=== PATIENT | male | born 2000 | race African-American/Black ===

== ENCOUNTER 2022-07-14 18:08 | Emergency (ER) | payer BC ==
[2022-07-14] MEDS ORDERED: ACETAMINOPHEN TAB 500 MG TAB PO STA (18:26)
--- NOTE | 2022-07-14 18:33 | ED ---
General Adult HPI - General Chief complaint: Extremity Injury, Upper Stated complaint: Arm injury Time Seen by Provider: 07/14/22 18:22 Source: patient, RN notes reviewed Mode of arrival: ambulatory Limitations: no limitations - History of Present Illness Initial comments: 21-year-old male presents to the emergency department with chief complaint of left hand injury. He states that he was playing flag football just prior to arrival when he went in for a tackle and he believes he bent his third through fifth digits back but is unclear of the exact mechanism of the injury. Patient has deformity of digits 3 through 5. He reports decrease in range of motion to his third through fifth digits of the left hand. Denies numbness, tingling. - Related Data Allergies Allergy/AdvReac Type Severity Reaction Status Date / Time No Known Allergies Allergy Verified 07/14/22 18:15 Review of Systems ROS Statement: Those systems with pertinent positive or pertinent negative responses have been documented in the HPI. ROS Other: All systems not noted in ROS Statement are negative. Past Medical History Additional Past Medical History / Comment(s): heart murmur History of Any Multi-Drug Resistant Organisms: None Reported Past Surgical History: No Surgical Hx Reported Past Psychological History: No Psychological Hx Reported Smoking Status: Never smoker Past Alcohol Use History: None Reported Past Drug Use History: None Reported General Exam Limitations: no limitations General appearance: alert, in no apparent distress Head exam: Present: atraumatic, normocephalic, normal inspection Eye exam: Present: normal appearance, PERRL, EOMI. Absent: scleral icterus, conjunctival injection, periorbital swelling ENT exam: Present: normal exam, mucous membranes moist Neck exam: Present: normal inspection. Absent: tenderness, meningismus, lymphadenopathy Respiratory exam: Present: normal lung sounds bilaterally. Absent: respiratory distress, wheezes, rales, rhonchi, stridor Cardiovascular Exam: Present: regular rate, normal rhythm, normal heart sounds. Absent: systolic murmur, diastolic murmur, rubs, gallop, clicks Extremities exam: Present: normal capillary refill, other (Patient has deformity to left hand third through fifth digits, decreased range of motion, radial pulses 2+ bilaterally, normal capillary refill) Back exam: Present: normal inspection Neurological exam: Present: alert, oriented X3 Psychiatric exam: Present: normal affect, normal mood Skin exam: Present: warm, dry, intact, normal color. Absent: rash Course Vital Signs 07/14/22 07/14/22 18:11 21:18 Temperature 99.3 F 98.4 F Pulse Rate 122 H 82 Respiratory 22 16 Rate Blood Pressure 106/66 131/80 O2 Sat by Pulse 97 97 Oximetry Medical Decision Making - Medical Decision Making Was pt. sent in by a medical professional or institution (, PA, [facility] [employer], urgent care, hospital, or assisted...) When possible be specific @ -No Did you speak to anyone other than the patient for history (EMS, parent, family, police, friend...)? What history was obtained from this source @ -patients friend in the room provided some history Did you review nursing and triage notes (agree or disagree)? Why? @ -I reviewed and agree with nursing and triage notes Were old charts reviewed (outside hosp., previous admission, EMS record, old EKG, old radiological studies, urgent care reports/EKG's, assisted records)? Report findings @ -No old charts were reviewed Differential Diagnosis (chest pain, altered mental status, abdominal pain women, abdominal pain men, vaginal bleeding, weakness, fever, dyspnea, syncope, headache, dizziness, GI bleed, back pain, seizure, CVA, palpatations, mental health, musculoskeletal)? @ -Differential Musculoskeletal Muscular strain, contusion, ligament sprain, fracture, arthritis, septic ar thritis, bursitis, cellulitis, muscle spasm, nerve compression, DVT, arterial occlusion, herpes zoster, electrolyte abnormality, tumor.... This is not meant to be in all inclusive list EKG interpreted by me (3pts min.). @ -None X-rays interpreted by me (1pt min.). @ -X-ray #1 of left hand was obtained which showed posterior dislocation of digits 3 through 5. X-ray #2 of left hand showed posterior dislocation of the fifth digit X-ray #3 of the left hand showed reduction of digits 3-5 CT interpreted by me (1pt min.). @ -None done U/S interpreted by me (1pt. min.). @ -None done What testing was considered but not performed or refused? (CT, X-rays, U/S, labs)? Why? @ -None What meds were considered but not given or refused? Why? @ -None Did you discuss the management of the patient with other professionals (professionals i.e. , PA, [facility] [employer], lab, RT, psych nurse, oncology social work, shot core drill operator helper, teacher, eeo officer, rifle case repairer)? Give summary @ -No Was smoking cessation discussed for >3mins.? @ -No Was critical care preformed (if so, how long)? @ -No Were there social determinants of health that impacted care today? How? (Homelessness, low income, unemployed, alcoholism, drug addiction, transportation, low edu. Level, literacy, decrease access to med. care, intermediate, rehab)? @ -No Was there de-escalation of care discussed even if they declined (Discuss DNR or withdrawal of care, Hospice)? DNR status @ -No What co-morbidities impacted this encounter? (DM, HTN, Smoking, COPD, CAD, Cancer, CVA, ARF, Chemo, Hep., AIDS, mental health diagnosis, sleep apnea, m orbid obesity)? @ -None Was patient admitted / discharged? Hospital course, mention meds given and route, prescriptions, significant lab abnormalities, going to OR and other pertinent info. @ -Discharged. Patient presented to emergency department chief complaint of left hand injury which [facility]-ray of the left hand initially showed dislocation of digits 3 through 5 posteriorly. Patient was given Tylenol but did not want any stronger pain medications. Closed Reduction was was attempted which resulted in improvement of digits 3 and 4. My attending, Dr. Singh attempted reduction of the fifth digit which did not feel successful. Another x-ray was obtained which showed persistent posterior dislocation of the fifth digit. Patient was given IM Dilaudid for pain and reduction of the fifth digit was attempted again by my attending, Dr. Singh. A repeat x-ray was obtained which showed reduction of digits 3 through 5. Patient had some swelling to the left hand but had increased range of motion after reduction. Patient neurovascularly intact. Patient discharged in stable condition. Undiagnosed new problem with uncertain prognosis? @ -No Drug Therapy requiring intensive monitoring for toxicity (Heparin, Nitro, In sulin, Cardizem)? @ -No Were any procedures done? @ -No Diagnosis/symptom? @ -Dislocation of digits 3 through 5 with a left hand Acute, or Chronic, or Acute on Chronic? @ -acute Uncomplicated (without systemic symptoms) or Complicated (systemic symptoms)? @ -uncomplicated Side effects of treatment? @ -No Exacerbation, Progression, or Severe Exacerbation? @ -No Poses a threat to life or bodily function? How? (Chest pain, USA, CT, pneumonia, PE, COPD, DKA, ARF, appy, cholecystitis, CVA, Diverticulitis, Homicidal, Suicidal, threat to staff... and all critical care pts) @ -No Disposition Clinical Impression: Dislocation of finger Disposition: HOME SELF-CARE Condition: Stable Instructions (If sedation given, give patient instructions): Finger Dislocation (ED) Additional Instructions: Take Tylenol and Motrin as needed for pain. Please follow up with her primary care provider early next week. Return to the emergency department for new or worsening symptoms. Is patient prescribed a controlled substance at d/c from ED?: No Referrals: None,Stated [REFERRING] - 1-2 days Lex Nolasco MD [Medical Doctor] - 1-2 days Time of Disposition: 21:14
[2022-07-14] MEDS ORDERED: HYDROmorphone 1 MG/ML 1 ML SYRINGE IM STA (18:44)
--- NOTE | 2022-07-14 19:06 | XR ---
EXAMINATION TYPE: XR hand complete LT DATE OF EXAM: 07/14/2022 6:43 PM INDICATION: Patient age:Male; 21 years old; Reason for study: injury, 3-5 digit deformity; COMPARISON: None TECHNIQUE: Frontal, lateral and oblique views of the left hand were obtained. FINDINGS/IMPRESSION: Posterior dislocation of the third through fifth metacarpophalangeal joints. No evidence of fracture. There is soft tissue swelling.
--- NOTE | 2022-07-14 20:45 | XR ---
EXAMINATION TYPE: XR hand limited LT DATE OF EXAM: 07/14/2022 7:55 PM INDICATION: Patient age:Male; 21 years old; Reason for study: post reduction digit 3, 4?; [facility]. COMPARISON: Left hand radiographs 07/14/2022 TECHNIQUE: Frontal, lateral and oblique views of the left hand were obtained. FINDINGS/IMPRESSION: Persistent posterior dislocation of the fifth metacarpal phalangeal joint. The remaining metacarpal p halangeal joints demonstrate interval relocation with normal alignment. No evidence for fracture. Dif fuse soft tissue swelling.
[2022-07-14 21:22] VITALS: BP 131/80; PULSE 82; RESP 16; TEMP 98.4
--- NOTE | 2022-07-14 21:24 | XR ---
EXAMINATION TYPE: XR hand limited LT DATE OF EXAM: 07/14/2022 9:09 PM INDICATION: Patient age:Male; 21 years old; Reason for study: reduction; [facility]. COMPARISON: Earlier hand radiographs 07/14/2022 TECHNIQUE: Frontal, lateral and oblique views of the left hand were obtained. FINDINGS/IMPRESSION: Interval reduction of posterior dislocation of the metacarpophalangeal joint of the fifth digit. Normal alignment present. No evidence for fracture. Diffuse soft tissue swelling.
== END 2022-07-14 21:22 | disposition home or self-care (01) ==
LOC: EC 18:08
DX: S63.267A Dislocation of metacarpophalangeal joint of left little finger, initial encounter (principal); X50.0XXA Overexertion from strenuous movement or load, initial encounter; Y93.61 Activity, american tackle football
CPT/HCPCS: 73120; 73130; 99283; 96372; J1170